=== PATIENT | male | born 1995 | race Caucasian/White ===

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

== ENCOUNTER 2018-01-28 16:25 | Emergency (ER) | payer OTHER ==
[~2018-01-28] VITALS: Ht 170.2 cm; Wt 76.5 kg
[2018-01-28] MEDS ORDERED: ALBUTEROL SULFATE 5 MG/ML 20 ML NEB SOLN [BULK] NEB ONE (18:30)
[2018-01-28] MEDS ORDERED: ALPRAZolam 0.25 MG TABLET PO ONE (18:30)
[2018-01-28] MEDS ORDERED: ALBUTEROL SULFATE HFA 90 MCG/PUFF 8 GM INHALER IH ONE (18:30)
[2018-01-28] MEDS ORDERED: 0.9% SODIUM CHLORIDE 5 ML NEB SOLUTION NEB ONE (18:47)
[2018-01-28] MEDS ORDERED: ONDANSETRON HCL 4 MG TABLET PO ONE (19:30)
[2018-01-28 20:06] VITALS: BP 119/64
== END 2018-01-28 20:27 | disposition home or self-care (01) ==
LOC: EMS 16:26
DX: F41.9 Anxiety disorder, unspecified (principal); F19.10 Other psychoactive substance abuse, uncomplicated; R06.02 Shortness of breath; J45.909 Unspecified asthma, uncomplicated; F32.9 Major depressive disorder, single episode, unspecified
CPT/HCPCS: 71045; 94640; 99284; Q0162; J3535

== ENCOUNTER 2021-07-22 15:00 | Emergency (ER) | payer OTHER ==
[~2021-07-22] VITALS: Ht 172.7 cm; Wt 90.9 kg
[2021-07-22] MEDS ORDERED: ALBU8HFA IH (15:10)
[2021-07-22] MEDS ORDERED: DiphenhydrAMINE HCL 25 MG/10 ML SOLUTION UDCUP PO ONE (15:45)
[2021-07-22] MEDS ORDERED: DEXAMETHASONE 4 MG TABLET PO ONE (16:00)
[2021-07-22 16:55] VITALS: BP 132/65
== END 2021-07-22 17:18 | disposition home or self-care (01) ==
LOC: EMS 15:02
DX: T63.441A Toxic effect of venom of bees, accidental (unintentional), initial encounter (principal); F32.9 Major depressive disorder, single episode, unspecified; F12.90 Cannabis use, unspecified, uncomplicated; J45.909 Unspecified asthma, uncomplicated; Y92.89 Other specified places as the place of occurrence of the external cause
CPT/HCPCS: 99283; J8540